=== PATIENT | male | born 1975 | race Caucasian/White ===

== ENCOUNTER → 2018-05-03 | Outpatient (CLI) | payer BC ==
--- NOTE | 2018-05-03 13:02 | Diagnostic Imaging Report ---
Indication: Right lower quadrant pain radiating from right groin Technique: Grayscale and duplex images of the pelvis. Graded compression images of the right lower quadrant. Grayscale duplex images of the scrotum and testicles Comparison: none Findings: Bladder appears normal. Bladder volume calculated at 190 mL. Postvoid bladder volume 7 mL. Calculated prostate volume is 19 mL. The appendix could not be demonstrated. Scrotal images demonstrate right testicular length of 4.9 cm, left testicular length 4.5 cm. No inguinal hernia demonstrated. There are small bilateral hydroceles. No focal testicular abnormality. Normal testicular blood flow is demonstrated. Normal epididymides bilaterally. Prominent spermatic cord remains are demonstrated bilaterally. Impression: Normal pelvic ultrasound No scrotal abnormality to explain stated clinical history of right lower quadrant pain. Specifically, no evidence of hernia Incidental finding of bilateral small hydroceles Note nonvisualization of the appendix
== END | disposition home or self-care (01) ==
LOC: ULS 08:37
DX: R10.31 Right lower quadrant pain (principal)
CPT/HCPCS: 76856; 76870